=== PATIENT | female | born 1990 ===

== ENCOUNTER 2019-08-17 09:30 | Inpatient (IN) | payer OTHER ==
[~2019-08-17] VITALS: Ht 160 cm; Wt 80.7 kg
== END 2019-08-27 13:04 | disposition home or self-care (01) | DRG 735 ==
LOC: O/R 09:30 → OB/GYN 08-24 05:41 → SURH 08-24 05:41 → OB/GYN 08-24 09:00 → SURH 08-24 09:30 → O/R 08-24 16:37 → OB/GYN 08-24 16:37
PROVIDERS: ADMIT Obstetrics & Gynecology Gynecologic Oncology
PROC: 0UT90ZZ Resection of Uterus, Open Approach (ICD-10-PCS; 2019-08-24)
PROC: 0UT50ZZ Resection of Right Fallopian Tube, Open Approach (ICD-10-PCS; 2019-08-24)
PROC: 07TC0ZZ Resection of Pelvis Lymphatic, Open Approach (ICD-10-PCS; principal; 2019-08-24 13:15)
DX: C53.0 Malignant neoplasm of endocervix (principal); L04.8 Acute lymphadenitis of other sites; I10 Essential (primary) hypertension